=== PATIENT | female | born 1990 | race Caucasian/White ===

== ENCOUNTER 2020-04-29 05:04 | Emergency (ER) | payer BC, MEDICARE ==
[~2020-04-29] VITALS: Ht 154.9 cm; Wt 47.7 kg
[2020-04-29 06:04] LABS: APPEARANCE,URINE CLOUDY (CLEAR); BILIRUBIN,URINE NEGATIVE (NEGATIVE); GLUCOSE, URINE (UA) NEGATIVE (NEGATIVE); KETONES,URINE NEGATIVE (NEGATIVE); LEUKOCYTE ESTERASE ,URINE SMALL (NEGATIVE); NITRATE,URINE NEGATIVE (NEGATIVE); OCCULT BLOOD,URINE NEGATIVE (NEGATIVE); PH,URINE 5.5 (5.0-8.0); PROTEIN,URINE NEGATIVE (NEGATIVE); UROBILINOGEN,URINE 0.2 mg/dL (<=1.0)
[2020-04-29 06:16] LABS: BACTERIA,URINE Few /HPF (None Seen); RBC,URINE None Seen /HPF (0-2); SQUAMOUS EPITHELIAL CELL,UR Few /LPF (None Seen); WBC,URINE 26-50 /HPF (0-5)
[2020-04-29 06:19] VITALS: BP 117/73
== END 2020-04-29 06:31 | disposition home or self-care (01) ==
LOC: EMS 05:05
DX: N39.0 Urinary tract infection, site not specified (principal)
CPT/HCPCS: 87086; 99283

== ENCOUNTER 2020-06-12 01:40 | Emergency (ER) | payer BC, MEDICAID ==
[~2020-06-12] VITALS: Ht 154.9 cm; Wt 47.7 kg
[2020-06-12] MEDS ORDERED: KETOROLAC TROMETHAMINE 30 MG/ML VIAL IM ONE (02:45)
[2020-06-12] MEDS ORDERED: METHOCARBAMOL 500 MG TABLET PO ONE (02:45)
[2020-06-12 04:30] VITALS: BP 122/71
[2020-06-12] MEDS ORDERED: LIDOCAINE 5% TRANSDERMAL PATCH TD ONE (04:45)
== END 2020-06-12 04:56 | disposition home or self-care (01) ==
LOC: EMS 01:41
DX: S39.012A Strain of muscle, fascia and tendon of lower back, initial encounter (principal); M41.9 Scoliosis, unspecified; M54.6 Pain in thoracic spine; X58.XXXA Exposure to other specified factors, initial encounter; Y93.89 Activity, other specified; Y92.89 Other specified places as the place of occurrence of the external cause; Y99.8 Other external cause status
CPT/HCPCS: 72070; 72110; 96372; 99284; Z7502; Z7610